=== PATIENT | female | born 1995 | race Caucasian/White ===

== ENCOUNTER 2016-09-16 05:30 | Inpatient (IN) | payer MEDICAID ==
[~2016-09-16] VITALS: Ht 177.8 cm; Wt 84.5 kg
[2016-09-16 05:52] LABS: GLUCOSE,POINT OF CARE 114 MG/DL (70-110)
[2016-09-16] MEDS ORDERED: NOREPINEPHRINE 4 MG/D5%-WATER 250 ML IV PRN (06:00)
[2016-09-16] MEDS ORDERED: SODIUM CHLORIDE 0.9% 1,000 ML IV ONE ×4 (06:00→11:00)
[2016-09-16 06:01] LABS: HEMATOCRIT 35.4 % (36-46); HEMOGLOBIN 11.6 g/dL (12.0-16.0); MEAN CORPUSCULAR HEMOGLOBIN 31.1 pg (26.0-34.0); MEAN CORPUSCULAR HGB CONC 32.8 G/dL (31.0-37.0); MEAN CORPUSCULAR VOLUME 95 fL (80-100); PLATELET COUNT (AUTO) 273 K/uL (150-450); RED BLOOD CELL COUNT(AUTO) 3.73 MIL/uL (4.00-5.20); RED CELL DISTRIBUTION WIDTH 13.5 % (11.5-14.5); WHITE BLOOD COUNT (AUTO) 29.4 K/uL (4.5-11.0)
[2016-09-16 06:10] LABS: ANION GAP 21 mmol/L (8-16); CALCIUM, TOTAL 8.4 mg/dL (8.8-10.5); CARBON DIOXIDE 23 mmol/L (22-29); CHLORIDE 108 mmol/L (98-107); CREATININE 1.95 mg/dL (0.60-1.30); GLOMERULAR FILTR. RATE CALC 32 mL/min (>60); POTASSIUM 3.7 mmol/L (3.5-5.1); SODIUM SERUM 152 mmol/L (136-145); UREA NITROGEN, BLOOD 12 mg/dL (7-18)
[2016-09-16] MEDS ORDERED: PHENYLEPHRINE 200 MG/D5%-WATER 250 ML IV PRN (06:30)
[2016-09-16] MEDS ORDERED: PHENYLEPHRINE 200 MG/D5%-WATER 250 ML IV ONE (06:35)
[2016-09-16] MEDS ORDERED: SODIUM CHLORIDE 0.9% 50 ML ONE (06:36)
[2016-09-16 06:40] LABS: ALANINE AMINOTRANSFERASE 45 U/L (12-78); ALBUMIN 2.7 g/dL (3.4-5.0); ASPARTATE AMINOTRANSFERASE 50 U/L (15-37); BILIRUBIN,TOTAL 0.2 mg/dL (0.1-1.0); CREATINE KINASE MB 0.5 ng/mL (0-5); CREATINE KINASE, TOTAL 111 U/L (26-192); TOTAL PROTEIN, SERUM 5.7 g/dL (6.4-8.2)
[2016-09-16 06:49] LABS: BAND NEUTROPHILS % (MANUAL) 5 % (1-5); LYMPHOCYTES % (MANUAL) 41 % (22-44); TOTAL CELLS COUNTED 100
[2016-09-16 07:12] LABS: APPEARANCE,URINE CLOUDY (CLEAR); GLUCOSE, URINE (UA) 100 mg/dL (NEGATIVE); KETONES,URINE NEGATIVE (NEGATIVE); LEUKOCYTE ESTERASE ,URINE MODERATE (NEGATIVE); OCCULT BLOOD,URINE LARGE (NEGATIVE); PROTEIN,URINE POS 1+ (NEGATIVE)
[2016-09-16 07:13] LABS: ACETAMINOPHEN 4 mcg/mL (10-30)
[2016-09-16] MEDS ORDERED: AZITHROMYCIN 500 MG/NS 250 ML IV ONE (07:15)
[2016-09-16] MEDS ORDERED: PIPERACILLIN/TAZO 3.375 GM/D5W 50 ML IV ONE (07:15)
[2016-09-16] MEDS ORDERED: CLINDAMYCIN 600 MG/D5% WATER 50 ML IV ONE (07:15)
[2016-09-16 07:22] LABS: ADD UA MICROSCOPIC YES
[2016-09-16 07:44] LABS: LACTIC ACID 9.2 mmol/L (0.4-2.0)
[2016-09-16] MEDS ORDERED: MIDAZOLAM HCL 100 MG in DEXTROSE 5%-WATER 180 ML IV PRN (07:45)
[2016-09-16 07:51] LABS: B-TYPE NATRIURETIC PEPTIDE 12 pg/mL (0-100)
[2016-09-16 08:00] LABS: SALICYLATE < 2.8 mg/dL (2.8-20.0)
[2016-09-16 08:52] LABS: REFLEX LACTIC ACID? YES YES
[2016-09-16 09:02] LABS: ABG A-A DIFF O2 343.6 mmHg (10-20.0); ABG BASE EXCESS -13.1 mmol/L (-2.0-3.0); ABG PCO2 39 mmHg (35-45); ABG PH 7.203 (7.350-7.450); TEMPERATURE, FAHRENHEIT, BG 98.6 FAHREN (96.0-98.6)
[2016-09-16 09:03] LABS: ALLEN TEST, BLOOD GAS POS
[2016-09-16] MEDS ORDERED: SODIUM BICARBONATE [ADULT] 8.4% 50 MEQ/50 ML SYRINGE IVP ONE (09:15)
[2016-09-16] MEDS ORDERED: DEXAMETHASONE SOD PHOS 4 MG/ML 5 ML VIAL IVP ONE (09:30)
[2016-09-16] MEDS ORDERED: HALOPERIDOL LACTATE 5 MG/ML VIAL IVP PRN (10:45)
[2016-09-16] MEDS ORDERED: MAGNESIUM HYDROXIDE SUSPENSION 30 ML UDCUP PO PRN (11:00)
[2016-09-16] MEDS ORDERED: MORPHINE SULFATE 2 MG/ML SYRINGE IVP PRN (11:00)
[2016-09-16] MEDS ORDERED: HYDROCODONE/ACETAMINOPHEN 5-325 MG TABLET PO PRN (11:00)
[2016-09-16] MEDS ORDERED: ACETAMINOPHEN 325 MG TABLET PO PRN (11:00)
[2016-09-16] MEDS ORDERED: ZOLPIDEM TARTRATE 5 MG TABLET PO PRN (11:00)
[2016-09-16] MEDS ORDERED: BISACODYL 10 MG RECTAL RECTAL SUPPOSITORY PR PRN (11:00)
[2016-09-16] MEDS ORDERED: ONDANSETRON HCL 4 MG/2 ML VIAL IVP PRN (11:00)
[2016-09-16 11:17] LABS: CALCIUM, TOTAL 6.9 mg/dL (8.8-10.5); CREATININE 1.56 mg/dL (0.60-1.30); POTASSIUM 3.7 mmol/L (3.5-5.1)
[2016-09-16] MEDS ORDERED: EPINEPHrine 1:1,000 [1 MG/ML] AMP IM ONE (12:00)
[2016-09-16 13:47] LABS: GLUCOSE,POINT OF CARE 121 MG/DL (70-110)
[2016-09-16 13:50] LABS: INR 1.3 (0.9-1.1); PROTHROMBIN TIME 13.3 SEC (9.4-11.6)
[2016-09-16] MEDS ORDERED: DEXTROSE 5%-0.9% SODIUM CHL 1,000 ML IV ONE (14:15)
[2016-09-16] MEDS: NOREPINEPHRINE 4 MG/D5%-WATER 250 ML IV PRN ×2 (14:43→22:43)
[2016-09-16] MEDS: HEPARIN SODIUM,PORCINE 5,000 UNITS/ML VIAL SQ SCH (16:31)
[2016-09-16] MEDS: PIPERACILLIN SODIUM/TAZOBACTAM 2.25 GM in DEXTROSE 5%-WATER 50 ML IV SCH (16:31)
[2016-09-16] MEDS: CLINDAMYCIN 300 MG/D5% WATER 50 ML IV SCH (17:10)
[2016-09-16] MEDS ORDERED: DOPamine HCL 400 MG/D5%-WATER 250 ML IV ONE (17:21)
[2016-09-16] MEDS ORDERED: DOPamine HCL 400 MG/D5%-WATER 250 ML IV PRN ×2 (17:30→17:36)
[2016-09-16 20:30] VITALS: BP 124/83
[2016-09-16] MEDS: DOCUSATE SODIUM 100 MG CAPSULE PO SCH (21:00)
[2016-09-17] VITALS: BP 119/91
[2016-09-17] MEDS: CLINDAMYCIN 300 MG/D5% WATER 50 ML IV SCH ×4 (01:23→23:52)
[2016-09-17] MEDS: HEPARIN SODIUM,PORCINE 5,000 UNITS/ML VIAL SQ SCH ×3 (01:25→16:04)
[2016-09-17] MEDS: PIPERACILLIN SODIUM/TAZOBACTAM 2.25 GM in DEXTROSE 5%-WATER 50 ML IV SCH ×4 (01:25→23:52)
[2016-09-17] MEDS: VASOPRESSIN 100 UNITS in DEXTROSE 5%-WATER 245 ML IV PRN ×2 (01:33→13:13)
[2016-09-17] MEDS: NOREPINEPHRINE 4 MG/D5%-WATER 250 ML IV PRN ×6 (01:36→21:06)
[2016-09-17] MEDS: PHENYLEPHRINE 200 MG/D5%-WATER 250 ML IV PRN ×2 (03:07→13:13)
[2016-09-17 04:00] VITALS: BP 105/79
[2016-09-17 05:50] LABS: BILIRUBIN,TOTAL 0.3 mg/dL (0.1-1.0); CALCIUM, TOTAL 6.7 mg/dL (8.8-10.5); CREATININE 2.05 mg/dL (0.60-1.30); MAGNESIUM 1.9 mg/dL (1.80-2.40); PHOSPHORUS 5.4 mg/dL (2.5-4.9); POTASSIUM 4.8 mmol/L (3.5-5.1); TOTAL PROTEIN, SERUM 6.4 g/dL (6.4-8.2)
[2016-09-17 06:19] LABS: EOSINOPHILS % (AUTO) 0 % (1.0-6.0); HEMATOCRIT 47.8 % (36-46); HEMOGLOBIN 15.2 g/dL (12.0-16.0); LYMPHOCYTES # (AUTO) 1.2 K/uL (1.0-4.8); LYMPHOCYTES % (AUTO) 4.3 % (22.0-44.0); MEAN CORPUSCULAR HEMOGLOBIN 30.1 pg (26.0-34.0); MEAN CORPUSCULAR HGB CONC 31.7 G/dL (31.0-37.0); MEAN CORPUSCULAR VOLUME 95 fL (80-100); MONOCYTES # (AUTO) 0.8 K/uL (0.1-1.0); MONOCYTES % (AUTO) 2.7 % (2.0-9.0); NEUTROPHILS # (AUTO) 27.1 K/uL (1.8-7.7); PLATELET COUNT (AUTO) 223 K/uL (150-450); RED BLOOD CELL COUNT(AUTO) 5.03 MIL/uL (4.00-5.20); RED CELL DISTRIBUTION WIDTH 13.9 % (11.5-14.5); WHITE BLOOD COUNT (AUTO) 29.2 K/uL (4.5-11.0)
[2016-09-17 07:45] LABS: RBC MORPHOLOGY COMMENT NORMAL RBC MORPH
[2016-09-17 08:00] VITALS: BP 120/100
[2016-09-17 08:26] LABS: ABG A-A DIFF O2 337.9 mmHg (10-20.0); ABG BASE EXCESS -12.6 mmol/L (-2.0-3.0); ABG HCO3 15.5 mmol/L (22.0-26.0); ABG OXYHEMOGLOBIN 98.4 % (94.0-100.0); ABG PCO2 37 mmHg (35-45); TEMPERATURE, FAHRENHEIT, BG 98.6 FAHREN (96.0-98.6)
[2016-09-17 08:38] LABS: ABG PH 7.228 (7.350-7.450)
[2016-09-17] MEDS: DOCUSATE SODIUM 100 MG CAPSULE PO SCH ×2 (08:51→21:00)
[2016-09-17] MEDS: PANTOPRAZOLE SODIUM 40 MG DR TABLET PO SCH (08:51)
[2016-09-17 12:00] VITALS: BP 139/121
[2016-09-17 16:00] VITALS: BP 117/79
[2016-09-17] MEDS ORDERED: SODIUM BICARBONATE [ADULT] 8.4% 50 MEQ/50 ML SYRINGE IVP ONE ×3 (16:45→21:30)
[2016-09-17] MEDS ORDERED: SODIUM BICARBONATE 50 MEQ/50 ML VIAL IVP ONE (17:00)
[2016-09-17] MEDS ORDERED: SODIUM CHLORIDE 0.9% 1,000 ML IV ONE (17:00)
[2016-09-17] MEDS ORDERED: LEVOTHYROXINE SODIUM 100 MCG VIAL IV ONE (17:00)
[2016-09-17] MEDS ORDERED: LEVOTHYROXINE SODIUM 100 MCG VIAL IVP ONE (17:15)
[2016-09-17 17:47] LABS: BASOPHILS % (AUTO) 0.3 % (0.0-2.0); EOSINOPHILS % (AUTO) 0 % (1.0-6.0); HEMATOCRIT 44.8 % (36-46); HEMOGLOBIN 14.3 g/dL (12.0-16.0); LYMPHOCYTES # (AUTO) 1.5 K/uL (1.0-4.8); LYMPHOCYTES % (AUTO) 5.4 % (22.0-44.0); MEAN CORPUSCULAR HEMOGLOBIN 29.9 pg (26.0-34.0); MEAN CORPUSCULAR VOLUME 94 fL (80-100); MONOCYTES # (AUTO) 0.9 K/uL (0.1-1.0); MONOCYTES % (AUTO) 3.1 % (2.0-9.0); NEUTROPHILS # (AUTO) 25.6 K/uL (1.8-7.7); PLATELET COUNT (AUTO) 202 K/uL (150-450); RED BLOOD CELL COUNT(AUTO) 4.79 MIL/uL (4.00-5.20); RED CELL DISTRIBUTION WIDTH 13.5 % (11.5-14.5); WHITE BLOOD COUNT (AUTO) 28.1 K/uL (4.5-11.0)
[2016-09-17 17:48] LABS: CALCIUM, TOTAL 6.9 mg/dL (8.8-10.5); CREATININE 1.32 mg/dL (0.60-1.30); POTASSIUM 5.3 mmol/L (3.5-5.1)
[2016-09-17 17:51] LABS: NEUTROPHILS % (AUTO) 91.2 % (40.0-70.0)
[2016-09-17 17:55] LABS: INR 1.3 (0.9-1.1); PROTHROMBIN TIME 14.2 SEC (9.4-11.6)
[2016-09-17] MEDS ORDERED: INSULIN REGULAR, HUMAN 100 UNITS/ML IVP ONE (18:00)
[2016-09-17] MEDS ORDERED: METOPROLOL TARTRATE 5 MG/5 ML VIAL IVP PRN (18:00)
[2016-09-17] MEDS ORDERED: DEXTROSE 50%-WATER 25 GM/50 ML SYRINGE IVP ONE (18:00)
[2016-09-17 18:07] LABS: ALBUMIN 2.9 g/dL (3.4-5.0); BILIRUBIN,TOTAL 0.3 mg/dL (0.1-1.0); TOTAL PROTEIN, SERUM 6.1 g/dL (6.4-8.2)
[2016-09-17] MEDS ORDERED: VASOPRESSIN IV PRN (18:15)
[2016-09-17] MEDS ORDERED: DEXTROSE 5% IV PRN (18:15)
[2016-09-17] MEDS ORDERED: VECURONIUM BROMIDE 10 MG/VIAL IVP ONE (18:15)
[2016-09-17] MEDS ORDERED: WATER IV PRN (18:15)
[2016-09-17] MEDS ORDERED: HydrALAZINE HCL 20 MG/ML VIAL IVP PRN (18:15)
[2016-09-17] MEDS ORDERED: NALOXONE HCL 1 MG/ML 2 ML SYG IVP ONE (18:15)
[2016-09-17] MEDS: LEVOTHYROXINE SODIUM 200 MCG in SODIUM CHLORIDE 0.9% 500 ML IV SCH (18:36)
[2016-09-17] MEDS: VANCOMYCIN HCL 1 GM/D5% WATER 200 ML IV SCH (18:37)
[2016-09-17] MEDS ORDERED: SODIUM CHLORIDE 0.9% 250 ML IV ONE (18:42)
[2016-09-17] MEDS: SODIUM CHLORIDE 0.9% 1,000 ML IV SCH (18:48)
[2016-09-17 19:53] LABS: ABG A-A DIFF O2 426.7 mmHg (10-20.0); ABG BASE EXCESS -6.9 mmol/L (-2.0-3.0); ABG HCO3 18.4 mmol/L (22.0-26.0); ABG OXYHEMOGLOBIN 93.4 % (94.0-100.0); ABG PCO2 56 mmHg (35-45); TEMPERATURE, FAHRENHEIT, BG 99.8 FAHREN (96.0-98.6)
[2016-09-17 19:54] LABS: ALLEN TEST, BLOOD GAS Positive
[2016-09-17 20:00] VITALS: BP 124/87
[2016-09-17 20:09] LABS: ABG PH 7.196 (7.350-7.450)
[2016-09-17] MEDS ORDERED: MAGNESIUM SULFATE 2 GM in DEXTROSE 5%-WATER 50 ML IV PRN (20:15)
[2016-09-17] MEDS ORDERED: MAGNESIUM SULFATE 4 GM/WATER 100 ML IV PRN (20:15)
[2016-09-17] MEDS ORDERED: POTASSIUM CHL 10 MEQ/WATER 50 ML IV PRN (20:15)
[2016-09-17] MEDS: CHLORHEXIDINE GLUCONATE 0.12% 15 ML UDCUP ORAL RINSE PO SCH (21:05)
[2016-09-17 21:11] LABS: ABG A-A DIFF O2 420.3 mmHg (10-20.0); ABG BASE EXCESS -6.5 mmol/L (-2.0-3.0); ABG HCO3 18.7 mmol/L (22.0-26.0); ABG OXYHEMOGLOBIN 94.8 % (94.0-100.0); ABG PCO2 56 mmHg (35-45); TEMPERATURE, FAHRENHEIT, BG 98.7 FAHREN (96.0-98.6)
[2016-09-17 21:12] LABS: ABG PH 7.201 (7.350-7.450); ALLEN TEST, BLOOD GAS Positive
[2016-09-17 21:34] LABS: HEMATOCRIT 45.8 % (36-46); HEMOGLOBIN 14.5 g/dL (12.0-16.0); MEAN CORPUSCULAR HEMOGLOBIN 29.7 pg (26.0-34.0); MEAN CORPUSCULAR HGB CONC 31.6 G/dL (31.0-37.0); MEAN CORPUSCULAR VOLUME 94 fL (80-100); PLATELET COUNT (AUTO) 181 K/uL (150-450); RED BLOOD CELL COUNT(AUTO) 4.88 MIL/uL (4.00-5.20)
[2016-09-17 21:47] LABS: INR 1.4 (0.9-1.1); PROTHROMBIN TIME 14.6 SEC (9.4-11.6)
[2016-09-17 22:03] LABS: ANION GAP 10 mmol/L (8-16); CALCIUM, TOTAL 6.5 mg/dL (8.8-10.5); CARBON DIOXIDE 27 mmol/L (22-29); CHLORIDE 106 mmol/L (98-107); CREATININE 1.22 mg/dL (0.60-1.30); GLOMERULAR FILTR. RATE CALC 55 mL/min (>60); POTASSIUM 3.9 mmol/L (3.5-5.1); SODIUM SERUM 143 mmol/L (136-145); UREA NITROGEN, BLOOD 19 mg/dL (7-18)
[2016-09-17 22:10] LABS: BAND NEUTROPHILS % (MANUAL) 7 % (1-5); LYMPHOCYTES % (MANUAL) 3 % (22-44); TOTAL CELLS COUNTED 100
[2016-09-17 22:34] LABS: ALANINE AMINOTRANSFERASE 3354 U/L (12-78); ALBUMIN 2.6 g/dL (3.4-5.0); AMYLASE 54 U/L (25-115); BILIRUBIN,TOTAL 0.4 mg/dL (0.1-1.0); CREATINE KINASE MB 174.5 ng/mL (0-5); GAMMA GLUTAMYL TRANSFERASE 22 U/L (5-85); LACTATE DEHYDROGENASE 2189 U/L (81-234); PHOSPHORUS 4.6 mg/dL (2.5-4.9); TOTAL PROTEIN, SERUM 5.7 g/dL (6.4-8.2)
[2016-09-17 22:46] LABS: LACTIC ACID 4.5 mmol/L (0.4-2.0)
[2016-09-17 22:49] LABS: ASPARTATE AMINOTRANSFERASE 3903 U/L (15-37); CREATINE KINASE, TOTAL 5257 U/L (26-192)
[2016-09-17 23:08] LABS: APPEARANCE,URINE TURBID (CLEAR); GLUCOSE, URINE (UA) 100 mg/dL (NEGATIVE); KETONES,URINE NEGATIVE (NEGATIVE); LEUKOCYTE ESTERASE ,URINE SMALL (NEGATIVE); OCCULT BLOOD,URINE LARGE (NEGATIVE); PROTEIN,URINE SEE CONFIRM (NEGATIVE)
[2016-09-17 23:11] LABS: ADD UA MICROSCOPIC YES
[2016-09-17 23:23] LABS: SULFOSALICYLIC ACID,URINE 1+ (Negative)
[2016-09-17 23:24] LABS: SQUAMOUS EPITHELIAL CELL,UR Moderate /LPF (None Seen)
[2016-09-17 23:28] LABS: REFLEX LACTIC ACID? YES YES
[2016-09-18] VITALS: BP 132/96
[2016-09-18 01:19] LABS: ABG A-A DIFF O2 303.2 mmHg (10-20.0); ABG HCO3 22.4 mmol/L (22.0-26.0); ABG OXYHEMOGLOBIN 98.3 % (94.0-100.0); ABG PCO2 52 mmHg (35-45); TEMPERATURE, FAHRENHEIT, BG 98.7 FAHREN (96.0-98.6)
[2016-09-18 01:20] LABS: ABG PH 7.295 (7.350-7.450); ALLEN TEST, BLOOD GAS Positive
[2016-09-18 01:29] LABS: ANION GAP 8 mmol/L (8-16); CALCIUM, TOTAL 6.7 mg/dL (8.8-10.5); CARBON DIOXIDE 29 mmol/L (22-29); CHLORIDE 105 mmol/L (98-107); CREATININE 1.08 mg/dL (0.60-1.30); GLOMERULAR FILTR. RATE CALC > 60 mL/min (>60); POTASSIUM 4.2 mmol/L (3.5-5.1); SODIUM SERUM 142 mmol/L (136-145); UREA NITROGEN, BLOOD 18 mg/dL (7-18)
[2016-09-18] MEDS: ALBUTEROL SULFATE 2.5 MG/0.5 ML NEB SOLUTION NEB SCH ×11 (01:31→23:09)
[2016-09-18] MEDS: IPRATROPIUM BROMIDE 0.5 MG/2.5 ML NEB SOLUTION NEB SCH ×11 (01:31→23:09)
[2016-09-18 01:33] LABS: HEMATOCRIT 41.7 % (36-46); HEMOGLOBIN 13.8 g/dL (12.0-16.0); MEAN CORPUSCULAR HEMOGLOBIN 30.9 pg (26.0-34.0); MEAN CORPUSCULAR VOLUME 94 fL (80-100); PLATELET COUNT (AUTO) 184 K/uL (150-450); RED BLOOD CELL COUNT(AUTO) 4.45 MIL/uL (4.00-5.20); RED CELL DISTRIBUTION WIDTH 13.9 % (11.5-14.5); WHITE BLOOD COUNT (AUTO) 25.3 K/uL (4.5-11.0)
[2016-09-18 01:38] LABS: INR 1.3 (0.9-1.1); PROTHROMBIN TIME 14.1 SEC (9.4-11.6)
[2016-09-18 01:59] LABS: LACTIC ACID 4.8 mmol/L (0.4-2.0)
[2016-09-18 02:04] LABS: ALANINE AMINOTRANSFERASE 2990 U/L (12-78); ALBUMIN 2.6 g/dL (3.4-5.0); AMYLASE 53 U/L (25-115); BILIRUBIN,TOTAL 0.4 mg/dL (0.1-1.0); CREATINE KINASE MB 157.5 ng/mL (0-5); CREATINE KINASE, TOTAL 5026 U/L (26-192); PHOSPHORUS 3.6 mg/dL (2.5-4.9); TOTAL PROTEIN, SERUM 5.5 g/dL (6.4-8.2)
[2016-09-18] MEDS: PHENYLEPHRINE 200 MG/D5%-WATER 250 ML IV PRN (02:28)
[2016-09-18] MEDS ORDERED: SODIUM BICARBONATE [ADULT] 8.4% 50 MEQ/50 ML SYRINGE IVP ONE (02:30)
[2016-09-18 02:35] LABS: ASPARTATE AMINOTRANSFERASE 3060 U/L (15-37)
[2016-09-18 02:51] LABS: TOTAL CELLS COUNTED 100
[2016-09-18 02:52] LABS: BAND NEUTROPHILS % (MANUAL) 3 % (1-5); LYMPHOCYTES % (MANUAL) 3 % (22-44)
[2016-09-18 04:00] VITALS: BP 110/68
[2016-09-18] MEDS: SODIUM CHLORIDE 0.9% 1,000 ML IV SCH (04:12)
[2016-09-18 05:35] LABS: ABG A-A DIFF O2 258.1 mmHg (10-20.0); ABG BASE EXCESS 2.6 mmol/L (-2.0-3.0); ABG HCO3 26.4 mmol/L (22.0-26.0); ABG OXYHEMOGLOBIN 98.1 % (94.0-100.0); ABG PCO2 46 mmHg (35-45); ABG PH 7.392 (7.350-7.450); TEMPERATURE, FAHRENHEIT, BG 99.7 FAHREN (96.0-98.6)
[2016-09-18 05:36] LABS: ALLEN TEST, BLOOD GAS Positive
[2016-09-18 05:45] LABS: HEMATOCRIT 41.3 % (36-46); HEMOGLOBIN 13.5 g/dL (12.0-16.0); MEAN CORPUSCULAR HEMOGLOBIN 30.8 pg (26.0-34.0); MEAN CORPUSCULAR HGB CONC 32.6 G/dL (31.0-37.0); MEAN CORPUSCULAR VOLUME 94 fL (80-100); PLATELET COUNT (AUTO) 171 K/uL (150-450); RED BLOOD CELL COUNT(AUTO) 4.38 MIL/uL (4.00-5.20); RED CELL DISTRIBUTION WIDTH 13.4 % (11.5-14.5); WHITE BLOOD COUNT (AUTO) 23.2 K/uL (4.5-11.0)
[2016-09-18 05:50] LABS: ANION GAP 8 mmol/L (8-16); CALCIUM, TOTAL 7.2 mg/dL (8.8-10.5); CARBON DIOXIDE 31 mmol/L (22-29); CHLORIDE 108 mmol/L (98-107); CREATININE 1.01 mg/dL (0.60-1.30); GLOMERULAR FILTR. RATE CALC > 60 mL/min (>60); SODIUM SERUM 147 mmol/L (136-145); UREA NITROGEN, BLOOD 16 mg/dL (7-18)
[2016-09-18 05:51] LABS: INR 1.2 (0.9-1.1); PROTHROMBIN TIME 12.6 SEC (9.4-11.6)
[2016-09-18] MEDS ORDERED: FUROSEMIDE 20 MG/2 ML VIAL IVP ONE ×2 (06:00→13:00)
[2016-09-18] MEDS: LEVOTHYROXINE SODIUM 200 MCG in SODIUM CHLORIDE 0.9% 500 ML IV SCH ×2 (06:07→17:35)
[2016-09-18 06:11] LABS: LACTIC ACID 4.2 mmol/L (0.4-2.0)
[2016-09-18 06:23] LABS: ALANINE AMINOTRANSFERASE 2952 U/L (12-78); ALBUMIN 2.8 g/dL (3.4-5.0); AMYLASE 57 U/L (25-115); ASPARTATE AMINOTRANSFERASE 1961 U/L (15-37); BILIRUBIN,TOTAL 0.5 mg/dL (0.1-1.0); CREATINE KINASE MB 135.2 ng/mL (0-5); CREATINE KINASE, TOTAL 4893 U/L (26-192); PHOSPHORUS 2.2 mg/dL (2.5-4.9); TOTAL PROTEIN, SERUM 5.4 g/dL (6.4-8.2)
[2016-09-18 06:28] LABS: BAND NEUTROPHILS % (MANUAL) 3 % (1-5); LYMPHOCYTES % (MANUAL) 4 % (22-44); TOTAL CELLS COUNTED 100
[2016-09-18 07:58] LABS: ABG A-A DIFF O2 196.7 mmHg (10-20.0); ABG BASE EXCESS 3.9 mmol/L (-2.0-3.0); ABG HCO3 27.3 mmol/L (22.0-26.0); ABG OXYHEMOGLOBIN 97.5 % (94.0-100.0); ABG PCO2 47 mmHg (35-45); ABG PH 7.404 (7.350-7.450); TEMPERATURE, FAHRENHEIT, BG 98.9 FAHREN (96.0-98.6)
[2016-09-18 07:59] LABS: ALLEN TEST, BLOOD GAS Positive
[2016-09-18 08:00] VITALS: BP 118/68
[2016-09-18] MEDS: PIPERACILLIN SODIUM/TAZOBACTAM 2.25 GM in DEXTROSE 5%-WATER 50 ML IV SCH ×2 (08:23→17:34)
[2016-09-18] MEDS: CLINDAMYCIN 300 MG/D5% WATER 50 ML IV SCH ×2 (08:23→17:34)
[2016-09-18] MEDS: CHLORHEXIDINE GLUCONATE 0.12% 15 ML UDCUP ORAL RINSE PO SCH ×2 (08:23→21:23)
[2016-09-18] MEDS: PANTOPRAZOLE SODIUM 40 MG DR TABLET PO SCH (08:23)
[2016-09-18] MEDS: DOCUSATE SODIUM 100 MG CAPSULE PO SCH ×2 (08:23→21:00)
[2016-09-18 08:32] LABS: EOSINOPHILS % (AUTO) 0 % (1.0-6.0); HEMATOCRIT 40.6 % (36-46); HEMOGLOBIN 13.2 g/dL (12.0-16.0); LYMPHOCYTES # (AUTO) 0.6 K/uL (1.0-4.8); LYMPHOCYTES % (AUTO) 2.4 % (22.0-44.0); MEAN CORPUSCULAR HEMOGLOBIN 30.3 pg (26.0-34.0); MEAN CORPUSCULAR HGB CONC 32.6 G/dL (31.0-37.0); MEAN CORPUSCULAR VOLUME 93 fL (80-100); MONOCYTES # (AUTO) 0.2 K/uL (0.1-1.0); MONOCYTES % (AUTO) 0.8 % (2.0-9.0); NEUTROPHILS # (AUTO) 24.8 K/uL (1.8-7.7); PLATELET COUNT (AUTO) 183 K/uL (150-450); RED BLOOD CELL COUNT(AUTO) 4.38 MIL/uL (4.00-5.20); RED CELL DISTRIBUTION WIDTH 13.8 % (11.5-14.5); WHITE BLOOD COUNT (AUTO) 25.6 K/uL (4.5-11.0)
[2016-09-18 08:34] LABS: NEUTROPHILS % (AUTO) 96.8 % (40.0-70.0)
[2016-09-18 08:42] LABS: ANION GAP 10 mmol/L (8-16); CALCIUM, TOTAL 7.5 mg/dL (8.8-10.5); CARBON DIOXIDE 31 mmol/L (22-29); CHLORIDE 110 mmol/L (98-107); CREATININE 1.11 mg/dL (0.60-1.30); GLOMERULAR FILTR. RATE CALC > 60 mL/min (>60); POTASSIUM 3.9 mmol/L (3.5-5.1); SODIUM SERUM 151 mmol/L (136-145); UREA NITROGEN, BLOOD 15 mg/dL (7-18)
[2016-09-18 08:43] LABS: INR 1.2 (0.9-1.1); PROTHROMBIN TIME 12.3 SEC (9.4-11.6)
[2016-09-18 09:09] LABS: LACTIC ACID 4.6 mmol/L (0.4-2.0)
[2016-09-18 09:18] LABS: ALANINE AMINOTRANSFERASE 2861 U/L (12-78); ALBUMIN 2.9 g/dL (3.4-5.0); AMYLASE 55 U/L (25-115); BILIRUBIN,TOTAL 0.6 mg/dL (0.1-1.0); CREATINE KINASE MB 112.8 ng/mL (0-5); PHOSPHORUS 1.6 mg/dL (2.5-4.9); TOTAL PROTEIN, SERUM 5.9 g/dL (6.4-8.2)
[2016-09-18 09:20] LABS: ASPARTATE AMINOTRANSFERASE 1672 U/L (15-37)
[2016-09-18 09:21] LABS: CREATINE KINASE, TOTAL 4152 U/L (26-192)
[2016-09-18] MEDS ORDERED: SODIUM CHLORIDE 0.9% 500 ML IV ONE (09:34)
[2016-09-18] MEDS ORDERED: POTASSIUM PHOS,M-BASIC-D-BASIC 20 MMOL in DEXTROSE 5%-WATER 150 ML IV ONE (11:15)
[2016-09-18] MEDS: DEXTROSE 5%-WATER 1,000 ML IV SCH ×2 (11:34→17:34)
[2016-09-18 12:00] VITALS: BP 94/49
[2016-09-18 12:11] LABS: ABG A-A DIFF O2 203.1 mmHg (10-20.0); ABG BASE EXCESS 0.9 mmol/L (-2.0-3.0); ABG HCO3 25.4 mmol/L (22.0-26.0); ABG OXYHEMOGLOBIN 97.5 % (94.0-100.0); ABG PCO2 38 mmHg (35-45); ABG PH 7.434 (7.350-7.450); TEMPERATURE, FAHRENHEIT, BG 98.5 FAHREN (96.0-98.6)
[2016-09-18 12:40] LABS: BASOPHILS % (AUTO) 0.3 % (0.0-2.0); EOSINOPHILS % (AUTO) 0 % (1.0-6.0); HEMATOCRIT 35.5 % (36-46); HEMOGLOBIN 11.7 g/dL (12.0-16.0); LYMPHOCYTES # (AUTO) 0.6 K/uL (1.0-4.8); LYMPHOCYTES % (AUTO) 2.1 % (22.0-44.0); MEAN CORPUSCULAR HEMOGLOBIN 30.3 pg (26.0-34.0); MEAN CORPUSCULAR VOLUME 92 fL (80-100); MONOCYTES # (AUTO) 0.3 K/uL (0.1-1.0); MONOCYTES % (AUTO) 1.1 % (2.0-9.0); PLATELET COUNT (AUTO) 179 K/uL (150-450); RED BLOOD CELL COUNT(AUTO) 3.87 MIL/uL (4.00-5.20); RED CELL DISTRIBUTION WIDTH 13.8 % (11.5-14.5)
[2016-09-18 12:45] LABS: ANION GAP 10 mmol/L (8-16); CALCIUM, TOTAL 7.3 mg/dL (8.8-10.5); CARBON DIOXIDE 31 mmol/L (22-29); CHLORIDE 110 mmol/L (98-107); CREATININE 0.88 mg/dL (0.60-1.30); GLOMERULAR FILTR. RATE CALC > 60 mL/min (>60); NEUTROPHILS % (AUTO) 96.5 % (40.0-70.0); POTASSIUM 3.3 mmol/L (3.5-5.1); SODIUM SERUM 151 mmol/L (136-145); UREA NITROGEN, BLOOD 16 mg/dL (7-18)
[2016-09-18 12:47] LABS: INR 1.2 (0.9-1.1); PROTHROMBIN TIME 12.5 SEC (9.4-11.6)
[2016-09-18 13:09] LABS: LACTIC ACID 3.2 mmol/L (0.4-2.0)
[2016-09-18 13:18] LABS: ALANINE AMINOTRANSFERASE 2462 U/L (12-78); ALBUMIN 2.5 g/dL (3.4-5.0); AMYLASE 45 U/L (25-115); BILIRUBIN,TOTAL 0.5 mg/dL (0.1-1.0); CREATINE KINASE MB 77.6 ng/mL (0-5); TOTAL PROTEIN, SERUM 5.1 g/dL (6.4-8.2)
[2016-09-18 13:33] LABS: ASPARTATE AMINOTRANSFERASE 1274 U/L (15-37); CREATINE KINASE, TOTAL 2924 U/L (26-192)
[2016-09-18 13:35] LABS: PHOSPHORUS 1.1 mg/dL (2.5-4.9)
[2016-09-18 14:31] LABS: REFLEX LACTIC ACID? YES YES
[2016-09-18 16:00] VITALS: BP 111/53
[2016-09-18 16:15] LABS: BASOPHILS % (AUTO) 1.2 % (0.0-2.0); EOSINOPHILS % (AUTO) 0 % (1.0-6.0); HEMATOCRIT 35.5 % (36-46); HEMOGLOBIN 11.5 g/dL (12.0-16.0); LYMPHOCYTES # (AUTO) 0.8 K/uL (1.0-4.8); LYMPHOCYTES % (AUTO) 2.7 % (22.0-44.0); MEAN CORPUSCULAR HGB CONC 32.5 G/dL (31.0-37.0); MEAN CORPUSCULAR VOLUME 92 fL (80-100); MONOCYTES # (AUTO) 0.3 K/uL (0.1-1.0); MONOCYTES % (AUTO) 1.1 % (2.0-9.0); NEUTROPHILS # (AUTO) 27.4 K/uL (1.8-7.7); PLATELET COUNT (AUTO) 181 K/uL (150-450); RED BLOOD CELL COUNT(AUTO) 3.84 MIL/uL (4.00-5.20); RED CELL DISTRIBUTION WIDTH 13.6 % (11.5-14.5); WHITE BLOOD COUNT (AUTO) 28.8 K/uL (4.5-11.0)
[2016-09-18 16:26] LABS: ABG A-A DIFF O2 181.3 mmHg (10-20.0); ABG BASE EXCESS 7.2 mmol/L (-2.0-3.0); ABG HCO3 30.5 mmol/L (22.0-26.0); ABG OXYHEMOGLOBIN 98.2 % (94.0-100.0); ABG PCO2 40 mmHg (35-45); ABG PH 7.495 (7.350-7.450); TEMPERATURE, FAHRENHEIT, BG 98.5 FAHREN (96.0-98.6)
[2016-09-18] MEDS ORDERED: LIDOCAINE HCL 4% 50 ML SOLUTION TP ONE (16:42)
[2016-09-18] MEDS ORDERED: EPINEPHrine 1:1,000 [1 MG/ML] AMP IM ONE (16:42)
[2016-09-18] MEDS ORDERED: LIDOCAINE HCL 2% 30 ML JELLY TP ONE (16:42)
[2016-09-18 16:49] LABS: INR 1.2 (0.9-1.1); PROTHROMBIN TIME 12.2 SEC (9.4-11.6)
[2016-09-18 16:58] LABS: ALANINE AMINOTRANSFERASE 2286 U/L (12-78); ALBUMIN 2.6 g/dL (3.4-5.0); AMYLASE 42 U/L (25-115); ANION GAP 7 mmol/L (8-16); BILIRUBIN,TOTAL 0.6 mg/dL (0.1-1.0); CALCIUM, TOTAL 7.5 mg/dL (8.8-10.5); CARBON DIOXIDE 33 mmol/L (22-29); CHLORIDE 108 mmol/L (98-107); CREATINE KINASE MB 56.3 ng/mL (0-5); CREATININE 0.96 mg/dL (0.60-1.30); GLOMERULAR FILTR. RATE CALC > 60 mL/min (>60); SODIUM SERUM 148 mmol/L (136-145); TOTAL PROTEIN, SERUM 5.3 g/dL (6.4-8.2); UREA NITROGEN, BLOOD 14 mg/dL (7-18)
[2016-09-18 17:07] LABS: LACTIC ACID 2.8 mmol/L (0.4-2.0)
[2016-09-18 17:19] LABS: ASPARTATE AMINOTRANSFERASE 1106 U/L (15-37); CREATINE KINASE, TOTAL 2775 U/L (26-192); PHOSPHORUS 1.1 mg/dL (2.5-4.9)
[2016-09-18] MEDS ORDERED: POTASSIUM PHOS,M-BASIC-D-BASIC 30 MMOL in DEXTROSE 5%-WATER 250 ML IV ONE ×2 (17:30→22:00)
[2016-09-18] MEDS ORDERED: SODIUM CHLORIDE 0.9% 250 ML IV ONE (17:32)
[2016-09-18] MEDS: POTASSIUM CHL 10 MEQ/WATER 50 ML IV PRN (18:39)
[2016-09-18] MEDS: VANCOMYCIN HCL 1 GM/D5% WATER 200 ML IV SCH (18:41)
[2016-09-18 19:20] LABS: ABG A-A DIFF O2 138.1 mmHg (10-20.0); ABG BASE EXCESS 5.5 mmol/L (-2.0-3.0); ABG OXYHEMOGLOBIN 97.5 % (94.0-100.0); ABG PCO2 42 mmHg (35-45); ABG PH 7.461 (7.350-7.450); TEMPERATURE, FAHRENHEIT, BG 98.6 FAHREN (96.0-98.6)
[2016-09-18 19:21] LABS: ALLEN TEST, BLOOD GAS Positive
[2016-09-18 20:35] LABS: BASOPHILS % (AUTO) 0.3 % (0.0-2.0); EOSINOPHILS % (AUTO) 0 % (1.0-6.0); HEMATOCRIT 32.7 % (36-46); HEMOGLOBIN 10.6 g/dL (12.0-16.0); LYMPHOCYTES # (AUTO) 0.6 K/uL (1.0-4.8); LYMPHOCYTES % (AUTO) 2.3 % (22.0-44.0); MEAN CORPUSCULAR HEMOGLOBIN 29.7 pg (26.0-34.0); MEAN CORPUSCULAR HGB CONC 32.5 G/dL (31.0-37.0); MEAN CORPUSCULAR VOLUME 91 fL (80-100); MONOCYTES # (AUTO) 0.3 K/uL (0.1-1.0); MONOCYTES % (AUTO) 1.3 % (2.0-9.0); NEUTROPHILS # (AUTO) 26.2 K/uL (1.8-7.7); PLATELET COUNT (AUTO) 174 K/uL (150-450); RED BLOOD CELL COUNT(AUTO) 3.58 MIL/uL (4.00-5.20); RED CELL DISTRIBUTION WIDTH 13.7 % (11.5-14.5); WHITE BLOOD COUNT (AUTO) 27.2 K/uL (4.5-11.0)
[2016-09-18 20:38] LABS: NEUTROPHILS % (AUTO) 96.1 % (40.0-70.0)
[2016-09-18 20:43] LABS: INR 1.2 (0.9-1.1); PROTHROMBIN TIME 12.3 SEC (9.4-11.6)
[2016-09-18 21:01] LABS: ALANINE AMINOTRANSFERASE 2090 U/L (12-78); ALBUMIN 2.5 g/dL (3.4-5.0); AMYLASE 36 U/L (25-115); ANION GAP 9 mmol/L (8-16); ASPARTATE AMINOTRANSFERASE 872 U/L (15-37); BILIRUBIN,TOTAL 0.6 mg/dL (0.1-1.0); CALCIUM, TOTAL 7.3 mg/dL (8.8-10.5); CARBON DIOXIDE 31 mmol/L (22-29); CHLORIDE 106 mmol/L (98-107); CREATINE KINASE MB 33.5 ng/mL (0-5); CREATINE KINASE, TOTAL 2087 U/L (26-192); CREATININE 1.03 mg/dL (0.60-1.30); GLOMERULAR FILTR. RATE CALC > 60 mL/min (>60); PHOSPHORUS 1.8 mg/dL (2.5-4.9); POTASSIUM 3.2 mmol/L (3.5-5.1); SODIUM SERUM 146 mmol/L (136-145); UREA NITROGEN, BLOOD 15 mg/dL (7-18)
[2016-09-18 21:16] LABS: LACTIC ACID 3.1 mmol/L (0.4-2.0)
[2016-09-18 21:26] VITALS: BP 115/56
[2016-09-18 23:22] LABS: ABG A-A DIFF O2 129.8 mmHg (10-20.0); ABG BASE EXCESS 6.6 mmol/L (-2.0-3.0); ABG OXYHEMOGLOBIN 97.8 % (94.0-100.0); ABG PCO2 42 mmHg (35-45); ABG PH 7.477 (7.350-7.450); TEMPERATURE, FAHRENHEIT, BG 98.3 FAHREN (96.0-98.6)
[2016-09-18 23:23] LABS: ALLEN TEST, BLOOD GAS Positive
[2016-09-19] MEDS ORDERED: ALBUMIN HUMAN 5%-12.5GM/250ML 250 ML IV ONE
[2016-09-19 00:19] VITALS: BP 117/57
[2016-09-19 00:36] LABS: HEMATOCRIT 31.4 % (36-46); HEMOGLOBIN 10.2 g/dL (12.0-16.0); MEAN CORPUSCULAR VOLUME 92 fL (80-100); RED BLOOD CELL COUNT(AUTO) 3.42 MIL/uL (4.00-5.20); WHITE BLOOD COUNT (AUTO) 29.9 K/uL (4.5-11.0)
[2016-09-19 00:37] LABS: BASOPHILS % (AUTO) 0.1 % (0.0-2.0); EOSINOPHILS % (AUTO) 0 % (1.0-6.0); LYMPHOCYTES # (AUTO) 0.7 K/uL (1.0-4.8); LYMPHOCYTES % (AUTO) 2.5 % (22.0-44.0); MEAN CORPUSCULAR HEMOGLOBIN 29.7 pg (26.0-34.0); MEAN CORPUSCULAR HGB CONC 32.5 G/dL (31.0-37.0); MONOCYTES # (AUTO) 0.4 K/uL (0.1-1.0); MONOCYTES % (AUTO) 1.2 % (2.0-9.0); NEUTROPHILS # (AUTO) 28.8 K/uL (1.8-7.7); PLATELET COUNT (AUTO) 171 K/uL (150-450); RED CELL DISTRIBUTION WIDTH 13.8 % (11.5-14.5)
[2016-09-19] MEDS: PIPERACILLIN SODIUM/TAZOBACTAM 2.25 GM in DEXTROSE 5%-WATER 50 ML IV SCH ×3 (00:39→16:09)
[2016-09-19 00:47] LABS: NEUTROPHILS % (AUTO) 96.2 % (40.0-70.0)
[2016-09-19] MEDS: LEVOTHYROXINE SODIUM 200 MCG in SODIUM CHLORIDE 0.9% 500 ML IV SCH ×3 (00:47→19:57)
[2016-09-19] MEDS: CLINDAMYCIN 300 MG/D5% WATER 50 ML IV SCH ×3 (00:48→16:08)
[2016-09-19 00:55] LABS: INR 1.1 (0.9-1.1)
[2016-09-19] MEDS: ALBUTEROL SULFATE 2.5 MG/0.5 ML NEB SOLUTION NEB SCH ×11 (00:59→23:41)
[2016-09-19] MEDS: IPRATROPIUM BROMIDE 0.5 MG/2.5 ML NEB SOLUTION NEB SCH ×11 (00:59→23:41)
[2016-09-19 01:09] LABS: LACTIC ACID 2.8 mmol/L (0.4-2.0)
[2016-09-19 01:20] LABS: ALANINE AMINOTRANSFERASE 2074 U/L (12-78); ALBUMIN 2.4 g/dL (3.4-5.0); AMYLASE 33 U/L (25-115); ANION GAP 7 mmol/L (8-16); ASPARTATE AMINOTRANSFERASE 779 U/L (15-37); BILIRUBIN,TOTAL 0.6 mg/dL (0.1-1.0); CALCIUM, TOTAL 7.5 mg/dL (8.8-10.5); CARBON DIOXIDE 32 mmol/L (22-29); CHLORIDE 106 mmol/L (98-107); CREATINE KINASE MB 27.6 ng/mL (0-5); CREATININE 0.87 mg/dL (0.60-1.30); GLOMERULAR FILTR. RATE CALC > 60 mL/min (>60); PHOSPHORUS 1.9 mg/dL (2.5-4.9); SODIUM SERUM 145 mmol/L (136-145); TOTAL PROTEIN, SERUM 5.1 g/dL (6.4-8.2); UREA NITROGEN, BLOOD 13 mg/dL (7-18)
[2016-09-19 01:29] LABS: CREATINE KINASE, TOTAL 1733 U/L (26-192); POTASSIUM 2.9 mmol/L (3.5-5.1)
[2016-09-19] MEDS: POTASSIUM CHL 10 MEQ/WATER 50 ML IV SCH ×5 (01:52→11:00)
[2016-09-19 03:22] LABS: ABG A-A DIFF O2 140.1 mmHg (10-20.0); ABG BASE EXCESS 5.7 mmol/L (-2.0-3.0); ABG HCO3 29.3 mmol/L (22.0-26.0); ABG OXYHEMOGLOBIN 97.3 % (94.0-100.0); ABG PCO2 39 mmHg (35-45); TEMPERATURE, FAHRENHEIT, BG 98.4 FAHREN (96.0-98.6)
[2016-09-19 03:25] LABS: ALLEN TEST, BLOOD GAS Positive
[2016-09-19] MEDS: DEXTROSE 5%-WATER 1,000 ML IV SCH (03:35)
[2016-09-19 04:40] VITALS: BP 123/59
[2016-09-19 05:24] LABS: EOSINOPHILS % (AUTO) 0 % (1.0-6.0); HEMATOCRIT 29.5 % (36-46); HEMOGLOBIN 9.8 g/dL (12.0-16.0); LYMPHOCYTES # (AUTO) 0.5 K/uL (1.0-4.8); LYMPHOCYTES % (AUTO) 1.8 % (22.0-44.0); MEAN CORPUSCULAR HEMOGLOBIN 30.8 pg (26.0-34.0); MEAN CORPUSCULAR HGB CONC 33.1 G/dL (31.0-37.0); MEAN CORPUSCULAR VOLUME 93 fL (80-100); MONOCYTES # (AUTO) 0.4 K/uL (0.1-1.0); MONOCYTES % (AUTO) 1.5 % (2.0-9.0); NEUTROPHILS # (AUTO) 27.1 K/uL (1.8-7.7); PLATELET COUNT (AUTO) 163 K/uL (150-450); RED BLOOD CELL COUNT(AUTO) 3.17 MIL/uL (4.00-5.20); RED CELL DISTRIBUTION WIDTH 14.2 % (11.5-14.5)
[2016-09-19 05:27] LABS: NEUTROPHILS % (AUTO) 96.7 % (40.0-70.0)
[2016-09-19 05:34] LABS: INR 1.1 (0.9-1.1)
[2016-09-19 06:05] LABS: ALANINE AMINOTRANSFERASE 1918 U/L (12-78); ALBUMIN 2.7 g/dL (3.4-5.0); AMYLASE 34 U/L (25-115); ANION GAP 9 mmol/L (8-16); ASPARTATE AMINOTRANSFERASE 657 U/L (15-37); BILIRUBIN,TOTAL 0.6 mg/dL (0.1-1.0); CALCIUM, TOTAL 7.5 mg/dL (8.8-10.5); CARBON DIOXIDE 32 mmol/L (22-29); CHLORIDE 102 mmol/L (98-107); CREATINE KINASE MB 16.8 ng/mL (0-5); CREATININE 0.93 mg/dL (0.60-1.30); GLOMERULAR FILTR. RATE CALC > 60 mL/min (>60); PHOSPHORUS 2.7 mg/dL (2.5-4.9); SODIUM SERUM 143 mmol/L (136-145); TOTAL PROTEIN, SERUM 5.3 g/dL (6.4-8.2); UREA NITROGEN, BLOOD 11 mg/dL (7-18)
[2016-09-19 06:08] LABS: CREATINE KINASE, TOTAL 1513 U/L (26-192); LACTIC ACID 2.6 mmol/L (0.4-2.0); POTASSIUM 2.8 mmol/L (3.5-5.1)
[2016-09-19] MEDS ORDERED: DEXTROSE 5%-WATER 1,000 ML IV SCH (06:51)
[2016-09-19] MEDS ORDERED: DEXTROSE 50%-WATER 25 GM/50 ML SYRINGE IVP PRN (07:00)
[2016-09-19] MEDS ORDERED: INSULIN REGULAR, HUMAN 100 UNITS in SODIUM CHLORIDE 0.9% 99 ML IV SCH ×2 (07:00)
[2016-09-19 07:11] LABS: REFLEX LACTIC ACID? YES YES
[2016-09-19 07:20] LABS: ABG A-A DIFF O2 115.8 mmHg (10-20.0); ABG BASE EXCESS 6.5 mmol/L (-2.0-3.0); ABG PCO2 40 mmHg (35-45); ABG PH 7.494 (7.350-7.450); TEMPERATURE, FAHRENHEIT, BG 98.6 FAHREN (96.0-98.6)
[2016-09-19] MEDS ORDERED: POTASSIUM CHLORIDE 40 MEQ in DEXTROSE 5%-WATER 1,000 ML IV SCH (07:30)
[2016-09-19] MEDS ORDERED: MAGNESIUM SULFATE 4 GM/WATER 100 ML IV ONE (07:30)
[2016-09-19 08:00] VITALS: BP 95/49
[2016-09-19] MEDS: PANTOPRAZOLE SODIUM 40 MG DR TABLET PO SCH (09:00)
[2016-09-19] MEDS: DOCUSATE SODIUM 100 MG CAPSULE PO SCH ×2 (09:00→21:00)
[2016-09-19 10:17] LABS: TEMPERATURE, FAHRENHEIT, BG 97.8 FAHREN (96.0-98.6)
[2016-09-19 10:23] LABS: ABG A-A DIFF O2 114.6 mmHg (10-20.0); ABG BASE EXCESS 6.7 mmol/L (-2.0-3.0); ABG HCO3 30.2 mmol/L (22.0-26.0); ABG OXYHEMOGLOBIN 97.5 % (94.0-100.0); ABG PCO2 37 mmHg (35-45); ABG PH 7.523 (7.350-7.450)
[2016-09-19] MEDS: CHLORHEXIDINE GLUCONATE 0.12% 15 ML UDCUP ORAL RINSE PO SCH ×2 (10:41→21:47)
[2016-09-19 11:51] LABS: ABG A-A DIFF O2 338.2 mmHg (10-20.0); ABG BASE EXCESS 6.5 mmol/L (-2.0-3.0); ABG HCO3 29.9 mmol/L (22.0-26.0); ABG OXYHEMOGLOBIN 99.2 % (94.0-100.0); ABG PCO2 42 mmHg (35-45); ABG PH 7.471 (7.350-7.450)
[2016-09-19 12:00] VITALS: BP 104/51
[2016-09-19 12:30] LABS: EOSINOPHILS % (AUTO) 0 % (1.0-6.0); HEMOGLOBIN 9.3 g/dL (12.0-16.0); LYMPHOCYTES # (AUTO) 0.6 K/uL (1.0-4.8); MEAN CORPUSCULAR HEMOGLOBIN 30.7 pg (26.0-34.0); MEAN CORPUSCULAR HGB CONC 33.3 G/dL (31.0-37.0); MEAN CORPUSCULAR VOLUME 92 fL (80-100); MONOCYTES # (AUTO) 0.4 K/uL (0.1-1.0); MONOCYTES % (AUTO) 1.6 % (2.0-9.0); NEUTROPHILS # (AUTO) 26.9 K/uL (1.8-7.7); PLATELET COUNT (AUTO) 158 K/uL (150-450); RED BLOOD CELL COUNT(AUTO) 3.04 MIL/uL (4.00-5.20); RED CELL DISTRIBUTION WIDTH 14.1 % (11.5-14.5)
[2016-09-19 12:33] LABS: NEUTROPHILS % (AUTO) 96.4 % (40.0-70.0)
[2016-09-19 12:38] LABS: INR 1.1 (0.9-1.1); PROTHROMBIN TIME 11.4 SEC (9.4-11.6)
[2016-09-19 12:54] LABS: LACTIC ACID 2.8 mmol/L (0.4-2.0)
[2016-09-19 13:08] LABS: ALANINE AMINOTRANSFERASE 1769 U/L (12-78); ALBUMIN 2.8 g/dL (3.4-5.0); AMYLASE 47 U/L (25-115); ANION GAP 9 mmol/L (8-16); ASPARTATE AMINOTRANSFERASE 537 U/L (15-37); BILIRUBIN,TOTAL 0.6 mg/dL (0.1-1.0); CALCIUM, TOTAL 7.6 mg/dL (8.8-10.5); CARBON DIOXIDE 31 mmol/L (22-29); CHLORIDE 101 mmol/L (98-107); CREATINE KINASE MB 10.6 ng/mL (0-5); CREATININE 0.82 mg/dL (0.60-1.30); GLOMERULAR FILTR. RATE CALC > 60 mL/min (>60); PHOSPHORUS 2.1 mg/dL (2.5-4.9); SODIUM SERUM 141 mmol/L (136-145); TOTAL PROTEIN, SERUM 5.3 g/dL (6.4-8.2); UREA NITROGEN, BLOOD 11 mg/dL (7-18)
[2016-09-19 13:11] LABS: CREATINE KINASE, TOTAL 1492 U/L (26-192)
[2016-09-19 13:13] LABS: POTASSIUM 2.9 mmol/L (3.5-5.1)
[2016-09-19] MEDS: POTASSIUM CHL 10 MEQ/WATER 50 ML IV PRN ×3 (13:35→14:58)
[2016-09-19 15:12] LABS: ABG BASE EXCESS 5.9 mmol/L (-2.0-3.0); ABG OXYHEMOGLOBIN 98.1 % (94.0-100.0); TEMPERATURE, FAHRENHEIT, BG 98.6 FAHREN (96.0-98.6)
[2016-09-19 15:15] LABS: ABG A-A DIFF O2 110.1 mmHg (10-20.0); ABG HCO3 29.4 mmol/L (22.0-26.0); ABG PCO2 43 mmHg (35-45); ABG PH 7.462 (7.350-7.450)
[2016-09-19 16:00] VITALS: BP 115/58
[2016-09-19] MEDS ORDERED: SODIUM CHLORIDE 0.9% 250 ML IV ONE (16:15)
[2016-09-19 16:58] LABS: HEMATOCRIT 28.2 % (36-46); HEMOGLOBIN 9.1 g/dL (12.0-16.0); MEAN CORPUSCULAR HEMOGLOBIN 29.8 pg (26.0-34.0); MEAN CORPUSCULAR HGB CONC 32.2 G/dL (31.0-37.0); MEAN CORPUSCULAR VOLUME 92 fL (80-100); PLATELET COUNT (AUTO) 155 K/uL (150-450); RED BLOOD CELL COUNT(AUTO) 3.05 MIL/uL (4.00-5.20); RED CELL DISTRIBUTION WIDTH 14.2 % (11.5-14.5)
[2016-09-19 17:03] LABS: WHITE BLOOD COUNT (AUTO) 31.5 K/uL (4.5-11.0)
[2016-09-19 17:10] LABS: INR 1.1 (0.9-1.1); PROTHROMBIN TIME 11.4 SEC (9.4-11.6)
[2016-09-19 17:15] LABS: ABG A-A DIFF O2 392.5 mmHg (10-20.0); ABG BASE EXCESS 4.6 mmol/L (-2.0-3.0); ABG HCO3 28.3 mmol/L (22.0-26.0); ABG OXYHEMOGLOBIN 99.2 % (94.0-100.0); ABG PCO2 44 mmHg (35-45); ABG PH 7.434 (7.350-7.450); TEMPERATURE, FAHRENHEIT, BG 100.1 FAHREN (96.0-98.6)
[2016-09-19 17:37] LABS: ALANINE AMINOTRANSFERASE 1703 U/L (12-78); ALBUMIN 2.7 g/dL (3.4-5.0); AMYLASE 53 U/L (25-115); ANION GAP 6 mmol/L (8-16); ASPARTATE AMINOTRANSFERASE 479 U/L (15-37); BILIRUBIN,TOTAL 0.5 mg/dL (0.1-1.0); CALCIUM, TOTAL 7.6 mg/dL (8.8-10.5); CARBON DIOXIDE 32 mmol/L (22-29); CHLORIDE 103 mmol/L (98-107); CREATINE KINASE MB 8.5 ng/mL (0-5); CREATININE 0.78 mg/dL (0.60-1.30); GLOMERULAR FILTR. RATE CALC > 60 mL/min (>60); LACTIC ACID 2.2 mmol/L (0.4-2.0); PHOSPHORUS 2.2 mg/dL (2.5-4.9); POTASSIUM 3.8 mmol/L (3.5-5.1); SODIUM SERUM 141 mmol/L (136-145); TOTAL PROTEIN, SERUM 5.3 g/dL (6.4-8.2); UREA NITROGEN, BLOOD 11 mg/dL (7-18)
[2016-09-19 17:38] LABS: CREATINE KINASE, TOTAL 1399 U/L (26-192)
[2016-09-19 17:45] LABS: BAND NEUTROPHILS % (MANUAL) 8 % (1-5); LYMPHOCYTES % (MANUAL) 6 % (22-44); TOTAL CELLS COUNTED 100
[2016-09-19 17:46] LABS: RBC MORPHOLOGY COMMENT NORMAL RBC MORPH
[2016-09-19] MEDS: POTASSIUM CHLORIDE 40 MEQ in SODIUM CHLORIDE 0.45% 1,000 ML IV SCH (17:54)
[2016-09-19] MEDS: VANCOMYCIN HCL 1 GM/D5% WATER 200 ML IV SCH (17:54)
[2016-09-19] MEDS ORDERED: SODIUM CHLORIDE 0.9% 500 ML IV ONE (17:57)
[2016-09-19 19:41] LABS: ABG A-A DIFF O2 302.8 mmHg (10-20.0); ABG BASE EXCESS 0.3 mmol/L (-2.0-3.0); ABG OXYHEMOGLOBIN 99.2 % (94.0-100.0); ABG PCO2 35 mmHg (35-45); ABG PH 7.456 (7.350-7.450); TEMPERATURE, FAHRENHEIT, BG 97.9 FAHREN (96.0-98.6)
[2016-09-19 20:00] VITALS: BP 100/51
[2016-09-19 20:16] LABS: ABG A-A DIFF O2 132.9 mmHg (10-20.0); ABG BASE EXCESS 2.9 mmol/L (-2.0-3.0); ABG OXYHEMOGLOBIN 97.6 % (94.0-100.0); ABG PCO2 36 mmHg (35-45); ABG PH 7.487 (7.350-7.450); TEMPERATURE, FAHRENHEIT, BG 97.6 FAHREN (96.0-98.6)
[2016-09-19 20:16] LABS: ALLEN TEST, BLOOD GAS POS
[2016-09-19 21:07] LABS: HEMATOCRIT 27.2 % (36-46); HEMOGLOBIN 8.8 g/dL (12.0-16.0); MEAN CORPUSCULAR HEMOGLOBIN 29.7 pg (26.0-34.0); MEAN CORPUSCULAR HGB CONC 32.2 G/dL (31.0-37.0); MEAN CORPUSCULAR VOLUME 92 fL (80-100); PLATELET COUNT (AUTO) 141 K/uL (150-450); RED BLOOD CELL COUNT(AUTO) 2.95 MIL/uL (4.00-5.20); RED CELL DISTRIBUTION WIDTH 14.3 % (11.5-14.5)
[2016-09-19 21:16] LABS: INR 1.1 (0.9-1.1); PROTHROMBIN TIME 11.5 SEC (9.4-11.6)
[2016-09-19 21:21] LABS: WHITE BLOOD COUNT (AUTO) 30.3 K/uL (4.5-11.0)
[2016-09-19 21:24] LABS: ALANINE AMINOTRANSFERASE 1661 U/L (12-78); ALBUMIN 2.6 g/dL (3.4-5.0); ANION GAP 8 mmol/L (8-16); ASPARTATE AMINOTRANSFERASE 428 U/L (15-37); BILIRUBIN,TOTAL 0.6 mg/dL (0.1-1.0); CALCIUM, TOTAL 7.8 mg/dL (8.8-10.5); CARBON DIOXIDE 30 mmol/L (22-29); CHLORIDE 104 mmol/L (98-107); CREATININE 0.73 mg/dL (0.60-1.30); GLOMERULAR FILTR. RATE CALC > 60 mL/min (>60); PHOSPHORUS 1.9 mg/dL (2.5-4.9); POTASSIUM 3.7 mmol/L (3.5-5.1); SODIUM SERUM 142 mmol/L (136-145); TOTAL PROTEIN, SERUM 5.3 g/dL (6.4-8.2); UREA NITROGEN, BLOOD 8 mg/dL (7-18)
[2016-09-19 21:30] LABS: LACTIC ACID 1.7 mmol/L (0.4-2.0)
[2016-09-19 21:38] LABS: BAND NEUTROPHILS % (MANUAL) 12 % (1-5); LYMPHOCYTES % (MANUAL) 6 % (22-44); TOTAL CELLS COUNTED 100; WBC MORPHOLOGY TOXIC VACUOLATION
[2016-09-19 21:39] LABS: RBC MORPHOLOGY COMMENT NORMAL RBC MORPH
[2016-09-19 23:03] LABS: ABG A-A DIFF O2 130.8 mmHg (10-20.0); ABG BASE EXCESS 1.4 mmol/L (-2.0-3.0); ABG HCO3 25.9 mmol/L (22.0-26.0); ABG OXYHEMOGLOBIN 97.6 % (94.0-100.0); ABG PCO2 32 mmHg (35-45); ABG PH 7.508 (7.350-7.450); TEMPERATURE, FAHRENHEIT, BG 98.6 FAHREN (96.0-98.6)
[2016-09-19 23:07] LABS: INSIPIRATORY PRESSURE, BG 28 cm H2O
[2016-09-19] MEDS ORDERED: VECURONIUM BROMIDE 10 MG/VIAL IVP ONE (23:30)
[2016-09-19] MEDS ORDERED: ACETYLCYSTEINE 20% 200 MG/ML 4 ML NEB SOLUTION NEB ONE (23:30)
[2016-09-19] MEDS ORDERED: NALOXONE HCL 1 MG/ML 2 ML SYG IVP ONE (23:30)
[2016-09-19] MEDS: ACETYLCYSTEINE 20% 200 MG/ML 4 ML NEB SOLUTION NEB SCH (23:41)
[2016-09-19] MEDS ORDERED: ALBUMIN HUMAN 25%-25GM/100ML 100 ML IV ONE (23:45)
[2016-09-19] MEDS ORDERED: FUROSEMIDE 40 MG/4 ML VIAL IVP ONE ×2 (23:45)
[2016-09-20] VITALS: BP 107/52
[2016-09-20] MEDS: CLINDAMYCIN 300 MG/D5% WATER 50 ML IV SCH ×3 (00:18→16:16)
[2016-09-20] MEDS: PIPERACILLIN SODIUM/TAZOBACTAM 2.25 GM in DEXTROSE 5%-WATER 50 ML IV SCH ×3 (00:18→16:16)
[2016-09-20 00:28] LABS: HEMATOCRIT 27.2 % (36-46); HEMOGLOBIN 8.9 g/dL (12.0-16.0); MEAN CORPUSCULAR HEMOGLOBIN 30.7 pg (26.0-34.0); MEAN CORPUSCULAR HGB CONC 32.6 G/dL (31.0-37.0); MEAN CORPUSCULAR VOLUME 94 fL (80-100); PLATELET COUNT (AUTO) 157 K/uL (150-450); RED BLOOD CELL COUNT(AUTO) 2.88 MIL/uL (4.00-5.20); RED CELL DISTRIBUTION WIDTH 13.7 % (11.5-14.5); WHITE BLOOD COUNT (AUTO) 27.1 K/uL (4.5-11.0)
[2016-09-20 00:32] LABS: INR 1.1 (0.9-1.1); PROTHROMBIN TIME 11.4 SEC (9.4-11.6)
[2016-09-20 00:46] LABS: LACTIC ACID 1.3 mmol/L (0.4-2.0)
[2016-09-20 00:54] LABS: ALANINE AMINOTRANSFERASE 1587 U/L (12-78); ALBUMIN 2.7 g/dL (3.4-5.0); ANION GAP 6 mmol/L (8-16); ASPARTATE AMINOTRANSFERASE 414 U/L (15-37); BILIRUBIN,TOTAL 0.6 mg/dL (0.1-1.0); CALCIUM, TOTAL 7.8 mg/dL (8.8-10.5); CARBON DIOXIDE 31 mmol/L (22-29); CHLORIDE 106 mmol/L (98-107); CREATININE 0.71 mg/dL (0.60-1.30); GLOMERULAR FILTR. RATE CALC > 60 mL/min (>60); PHOSPHORUS 1.9 mg/dL (2.5-4.9); POTASSIUM 3.7 mmol/L (3.5-5.1); SODIUM SERUM 143 mmol/L (136-145); TOTAL PROTEIN, SERUM 5.4 g/dL (6.4-8.2); UREA NITROGEN, BLOOD 10 mg/dL (7-18)
[2016-09-20] MEDS: ACETYLCYSTEINE 20% 200 MG/ML 4 ML NEB SOLUTION NEB SCH ×9 (01:22→17:00)
[2016-09-20] MEDS: ALBUTEROL SULFATE 2.5 MG/0.5 ML NEB SOLUTION NEB SCH ×9 (01:22→17:00)
[2016-09-20] MEDS: IPRATROPIUM BROMIDE 0.5 MG/2.5 ML NEB SOLUTION NEB SCH ×10 (01:22→19:00)
[2016-09-20] MEDS ORDERED: ALBUMIN HUMAN 25%-25GM/100ML 100 ML IV ONE (02:45)
[2016-09-20 03:16] LABS: ABG A-A DIFF O2 178.4 mmHg (10-20.0); ABG BASE EXCESS 6.8 mmol/L (-2.0-3.0); ABG HCO3 30.2 mmol/L (22.0-26.0); ABG PCO2 41 mmHg (35-45); ABG PH 7.488 (7.350-7.450); TEMPERATURE, FAHRENHEIT, BG 100.3 FAHREN (96.0-98.6)
[2016-09-20 03:18] LABS: INSIPIRATORY PRESSURE, BG 28 cm H2O
[2016-09-20 03:20] LABS: BAND NEUTROPHILS % (MANUAL) 3 % (1-5); LYMPHOCYTES % (MANUAL) 4 % (22-44); TOTAL CELLS COUNTED 100
[2016-09-20] MEDS: POTASSIUM CHL 10 MEQ/WATER 50 ML IV SCH ×2 (03:33→04:36)
[2016-09-20 03:39] LABS: ABG A-A DIFF O2 374.1 mmHg (10-20.0); ABG BASE EXCESS 4.4 mmol/L (-2.0-3.0); ABG HCO3 28.4 mmol/L (22.0-26.0); ABG PCO2 35 mmHg (35-45); ABG PH 7.508 (7.350-7.450); TEMPERATURE, FAHRENHEIT, BG 100.4 FAHREN (96.0-98.6)
[2016-09-20] MEDS: POTASSIUM CHLORIDE 40 MEQ in SODIUM CHLORIDE 0.45% 1,000 ML IV SCH ×3 (03:48→16:00)
[2016-09-20 04:00] VITALS: BP 128/24
[2016-09-20] MEDS: FUROSEMIDE 40 MG/4 ML VIAL IVP SCH ×4 (04:29→16:00)
[2016-09-20] MEDS: ALBUMIN HUMAN 25%-25GM/100ML 100 ML IV SCH ×4 (04:29→16:18)
[2016-09-20 05:04] LABS: EOSINOPHILS % (AUTO) 0 % (1.0-6.0); HEMATOCRIT 25.9 % (36-46); HEMOGLOBIN 8.5 g/dL (12.0-16.0); LYMPHOCYTES # (AUTO) 0.4 K/uL (1.0-4.8); LYMPHOCYTES % (AUTO) 1.8 % (22.0-44.0); MEAN CORPUSCULAR HEMOGLOBIN 30.9 pg (26.0-34.0); MEAN CORPUSCULAR HGB CONC 32.9 G/dL (31.0-37.0); MEAN CORPUSCULAR VOLUME 94 fL (80-100); MONOCYTES # (AUTO) 0.5 K/uL (0.1-1.0); NEUTROPHILS # (AUTO) 22.7 K/uL (1.8-7.7); PLATELET COUNT (AUTO) 146 K/uL (150-450); RED BLOOD CELL COUNT(AUTO) 2.77 MIL/uL (4.00-5.20); WHITE BLOOD COUNT (AUTO) 23.6 K/uL (4.5-11.0)
[2016-09-20 05:07] LABS: NEUTROPHILS % (AUTO) 96.2 % (40.0-70.0)
[2016-09-20 05:10] LABS: INR 1.1 (0.9-1.1); PROTHROMBIN TIME 11.5 SEC (9.4-11.6)
[2016-09-20 05:17] LABS: LACTIC ACID 1.6 mmol/L (0.4-2.0)
[2016-09-20 05:24] LABS: ALANINE AMINOTRANSFERASE 1431 U/L (12-78); ALBUMIN 3.6 g/dL (3.4-5.0); ANION GAP 5 mmol/L (8-16); ASPARTATE AMINOTRANSFERASE 368 U/L (15-37); BILIRUBIN,TOTAL 0.7 mg/dL (0.1-1.0); CALCIUM, TOTAL 8.3 mg/dL (8.8-10.5); CARBON DIOXIDE 35 mmol/L (22-29); CHLORIDE 110 mmol/L (98-107); CREATININE 0.95 mg/dL (0.60-1.30); GLOMERULAR FILTR. RATE CALC > 60 mL/min (>60); PHOSPHORUS 1.8 mg/dL (2.5-4.9); POTASSIUM 3.4 mmol/L (3.5-5.1); SODIUM SERUM 150 mmol/L (136-145); TOTAL PROTEIN, SERUM 6.2 g/dL (6.4-8.2); UREA NITROGEN, BLOOD 11 mg/dL (7-18)
[2016-09-20] MEDS: LEVOTHYROXINE SODIUM 200 MCG in SODIUM CHLORIDE 0.9% 500 ML IV SCH ×2 (06:07→16:16)
[2016-09-20] MEDS ORDERED: POTASSIUM PHOS,M-BASIC-D-BASIC 20 MMOL in DEXTROSE 5%-WATER 150 ML IV ONE (06:45)
[2016-09-20 08:00] VITALS: BP 129/61
[2016-09-20 08:11] LABS: ABG A-A DIFF O2 350.4 mmHg (10-20.0); ABG BASE EXCESS 10.7 mmol/L (-2.0-3.0); ABG HCO3 33.6 mmol/L (22.0-26.0); ABG OXYHEMOGLOBIN 98.5 % (94.0-100.0); ABG PCO2 43 mmHg (35-45); ABG PH 7.511 (7.350-7.450); TEMPERATURE, FAHRENHEIT, BG 99.9 FAHREN (96.0-98.6)
[2016-09-20] MEDS ORDERED: LABETALOL HCL 5 MG/ML 20 ML VIAL IVP ONE (08:27)
[2016-09-20] MEDS ORDERED: SODIUM CHLORIDE 0.45% 500 ML IV ONE (08:30)
[2016-09-20 08:37] LABS: EOSINOPHILS % (AUTO) 0 % (1.0-6.0); HEMATOCRIT 24.8 % (36-46); HEMOGLOBIN 8.2 g/dL (12.0-16.0); LYMPHOCYTES # (AUTO) 0.4 K/uL (1.0-4.8); LYMPHOCYTES % (AUTO) 1.7 % (22.0-44.0); MEAN CORPUSCULAR HEMOGLOBIN 30.5 pg (26.0-34.0); MEAN CORPUSCULAR HGB CONC 32.9 G/dL (31.0-37.0); MEAN CORPUSCULAR VOLUME 93 fL (80-100); MONOCYTES # (AUTO) 0.6 K/uL (0.1-1.0); MONOCYTES % (AUTO) 2.7 % (2.0-9.0); NEUTROPHILS # (AUTO) 20.2 K/uL (1.8-7.7); PLATELET COUNT (AUTO) 148 K/uL (150-450); RED BLOOD CELL COUNT(AUTO) 2.68 MIL/uL (4.00-5.20); RED CELL DISTRIBUTION WIDTH 14.1 % (11.5-14.5); WHITE BLOOD COUNT (AUTO) 21.1 K/uL (4.5-11.0)
[2016-09-20 08:38] LABS: NEUTROPHILS % (AUTO) 95.6 % (40.0-70.0)
[2016-09-20 08:42] LABS: INR 1.1 (0.9-1.1); PROTHROMBIN TIME 11.9 SEC (9.4-11.6)
[2016-09-20 08:59] LABS: ALANINE AMINOTRANSFERASE 1313 U/L (12-78); ALBUMIN 3.8 g/dL (3.4-5.0); ANION GAP 7 mmol/L (8-16); ASPARTATE AMINOTRANSFERASE 329 U/L (15-37); BILIRUBIN,TOTAL 0.8 mg/dL (0.1-1.0); CALCIUM, TOTAL 8.4 mg/dL (8.8-10.5); CARBON DIOXIDE 37 mmol/L (22-29); CHLORIDE 114 mmol/L (98-107); CREATININE 0.93 mg/dL (0.60-1.30); GLOMERULAR FILTR. RATE CALC > 60 mL/min (>60); PHOSPHORUS 2.5 mg/dL (2.5-4.9); POTASSIUM 3.5 mmol/L (3.5-5.1); SODIUM SERUM 158 mmol/L (136-145); TOTAL PROTEIN, SERUM 6.3 g/dL (6.4-8.2); UREA NITROGEN, BLOOD 12 mg/dL (7-18)
[2016-09-20] MEDS: PANTOPRAZOLE SODIUM 40 MG DR TABLET PO SCH (09:00)
[2016-09-20] MEDS: DOCUSATE SODIUM 100 MG CAPSULE PO SCH (09:00)
[2016-09-20 09:03] LABS: LACTIC ACID 1.6 mmol/L (0.4-2.0)
[2016-09-20] MEDS: CHLORHEXIDINE GLUCONATE 0.12% 15 ML UDCUP ORAL RINSE PO SCH (10:04)
[2016-09-20 12:00] VITALS: BP 131/63
[2016-09-20] MEDS ORDERED: AZITHROMYCIN 500 MG/NS 250 ML IV ONE (12:00)
[2016-09-20 12:03] LABS: GLUCOSE COMMENT 1 Received Meds; GLUCOSE,POINT OF CARE 202 MG/DL (70-110)
[2016-09-20 12:03] LABS: GLUCOSE COMMENT 1 Received Meds; GLUCOSE,POINT OF CARE 176 MG/DL (70-110)
[2016-09-20 12:03] LABS: EOSINOPHILS % (AUTO) 0 % (1.0-6.0); HEMATOCRIT 25.1 % (36-46); HEMOGLOBIN 8.1 g/dL (12.0-16.0); LYMPHOCYTES # (AUTO) 0.4 K/uL (1.0-4.8); LYMPHOCYTES % (AUTO) 1.9 % (22.0-44.0); MEAN CORPUSCULAR HEMOGLOBIN 30.1 pg (26.0-34.0); MEAN CORPUSCULAR HGB CONC 32.4 G/dL (31.0-37.0); MEAN CORPUSCULAR VOLUME 93 fL (80-100); MONOCYTES % (AUTO) 2.7 % (2.0-9.0); NEUTROPHILS # (AUTO) 19.7 K/uL (1.8-7.7); PLATELET COUNT (AUTO) 147 K/uL (150-450); RED CELL DISTRIBUTION WIDTH 14.6 % (11.5-14.5); WHITE BLOOD COUNT (AUTO) 20.7 K/uL (4.5-11.0)
[2016-09-20 12:04] LABS: MONOCYTES # (AUTO) 0.6 K/uL (0.1-1.0)
[2016-09-20 12:05] LABS: NEUTROPHILS % (AUTO) 95.4 % (40.0-70.0)
[2016-09-20 12:12] LABS: GLUCOSE COMMENT 1 Received Meds; GLUCOSE,POINT OF CARE 185 MG/DL (70-110)
[2016-09-20 12:12] LABS: GLUCOSE COMMENT 1 Received Meds; GLUCOSE,POINT OF CARE 173 MG/DL (70-110)
[2016-09-20 12:12] LABS: INR 1.1 (0.9-1.1); PROTHROMBIN TIME 12.1 SEC (9.4-11.6)
[2016-09-20 12:18] LABS: LACTIC ACID 1.6 mmol/L (0.4-2.0)
[2016-09-20 12:25] LABS: ALANINE AMINOTRANSFERASE 1308 U/L (12-78); ANION GAP 7 mmol/L (8-16); ASPARTATE AMINOTRANSFERASE 313 U/L (15-37); BILIRUBIN,TOTAL 0.7 mg/dL (0.1-1.0); CALCIUM, TOTAL 8.5 mg/dL (8.8-10.5); CARBON DIOXIDE 39 mmol/L (22-29); CHLORIDE 117 mmol/L (98-107); GLOMERULAR FILTR. RATE CALC > 60 mL/min (>60); PHOSPHORUS 3.4 mg/dL (2.5-4.9); POTASSIUM 3.4 mmol/L (3.5-5.1); TOTAL PROTEIN, SERUM 6.7 g/dL (6.4-8.2); UREA NITROGEN, BLOOD 15 mg/dL (7-18)
[2016-09-20 12:30] LABS: SODIUM SERUM 163 mmol/L (136-145)
[2016-09-20] MEDS ORDERED: DEXTROSE 5%-WATER 500 ML IV ONE (12:45)
[2016-09-20 13:18] LABS: GLUCOSE, URINE (UA) NEGATIVE (NEGATIVE); KETONES,URINE NEGATIVE (NEGATIVE); LEUKOCYTE ESTERASE ,URINE TRACE (NEGATIVE); OCCULT BLOOD,URINE MODERATE (NEGATIVE); PH,URINE 6.5 (5.0-8.0); PROTEIN,URINE NEGATIVE (NEGATIVE)
[2016-09-20 13:36] LABS: ABG A-A DIFF O2 70.3 mmHg (10-20.0); ABG BASE EXCESS 12.9 mmol/L (-2.0-3.0); ABG HCO3 35.4 mmol/L (22.0-26.0); ABG OXYHEMOGLOBIN 97.5 % (94.0-100.0); ABG PCO2 50 mmHg (35-45); ABG PH 7.482 (7.350-7.450); TEMPERATURE, FAHRENHEIT, BG 100.3 FAHREN (96.0-98.6)
[2016-09-20 13:42] LABS: ADD UA MICROSCOPIC YES
[2016-09-20 13:43] LABS: APPEARANCE,URINE HAZY (CLEAR)
[2016-09-20] MEDS ORDERED: POTASSIUM CHLORIDE 20 MEQ ER TABLET PO PRN (13:45)
[2016-09-20] MEDS ORDERED: POTASSIUM CHL 10 MEQ/WATER 50 ML IV PRN ×3 (13:45)
[2016-09-20] MEDS ORDERED: POTASSIUM CHLORIDE 10% 40 MEQ/30 ML LIQUID UDCUP NG PRN ×2 (13:45)
[2016-09-20 13:55] LABS: RBC,URINE 0-2 /HPF (0-2)
[2016-09-20 13:57] LABS: URINALYSIS COMMENT Rare Trich. seen.
[2016-09-20 13:59] LABS: SQUAMOUS EPITHELIAL CELL,UR Few /LPF (None Seen)
[2016-09-20 14:14] LABS: ABG A-A DIFF O2 224.9 mmHg (10-20.0); ABG HCO3 34.6 mmol/L (22.0-26.0); ABG OXYHEMOGLOBIN 98.2 % (94.0-100.0); ABG PCO2 50 mmHg (35-45); ABG PH 7.471 (7.350-7.450); TEMPERATURE, FAHRENHEIT, BG 100.3 FAHREN (96.0-98.6)
[2016-09-20] MEDS: POTASSIUM CHL 10 MEQ/WATER 50 ML IV PRN ×3 (14:30→16:01)
[2016-09-20 16:00] VITALS: BP 130/64
[2016-09-20 16:27] LABS: HEMATOCRIT 24.4 % (36-46); HEMOGLOBIN 7.7 g/dL (12.0-16.0); MEAN CORPUSCULAR HEMOGLOBIN 29.7 pg (26.0-34.0); MEAN CORPUSCULAR HGB CONC 31.8 G/dL (31.0-37.0); MEAN CORPUSCULAR VOLUME 94 fL (80-100); RED BLOOD CELL COUNT(AUTO) 2.61 MIL/uL (4.00-5.20); RED CELL DISTRIBUTION WIDTH 14.6 % (11.5-14.5); WHITE BLOOD COUNT (AUTO) 21.3 K/uL (4.5-11.0)
[2016-09-20 16:38] LABS: INR 1.2 (0.9-1.1); PROTHROMBIN TIME 12.3 SEC (9.4-11.6)
[2016-09-20 16:40] LABS: PLATELET COUNT (AUTO) 140 K/uL (150-450)
[2016-09-20 16:44] LABS: BAND NEUTROPHILS % (MANUAL) 4 % (1-5); EOSINOPHILS % (MANUAL) 1 % (1-6); LYMPHOCYTES % (MANUAL) 1 % (22-44); TOTAL CELLS COUNTED 100
[2016-09-20 16:47] LABS: RBC MORPHOLOGY COMMENT ABNORMAL RBC MORPH
[2016-09-20 16:52] LABS: LACTIC ACID 1.9 mmol/L (0.4-2.0)
[2016-09-20 16:59] LABS: ALANINE AMINOTRANSFERASE 1110 U/L (12-78); ALBUMIN 3.9 g/dL (3.4-5.0); ANION GAP 7 mmol/L (8-16); ASPARTATE AMINOTRANSFERASE 277 U/L (15-37); BILIRUBIN,TOTAL 0.6 mg/dL (0.1-1.0); CALCIUM, TOTAL 8.4 mg/dL (8.8-10.5); CARBON DIOXIDE 36 mmol/L (22-29); CHLORIDE 116 mmol/L (98-107); CREATININE 0.99 mg/dL (0.60-1.30); GLOMERULAR FILTR. RATE CALC > 60 mL/min (>60); PHOSPHORUS 2.4 mg/dL (2.5-4.9); POTASSIUM 3.9 mmol/L (3.5-5.1); SODIUM SERUM 159 mmol/L (136-145); TOTAL PROTEIN, SERUM 6.4 g/dL (6.4-8.2); UREA NITROGEN, BLOOD 16 mg/dL (7-18)
[2016-09-20 17:37] LABS: GLUCOSE COMMENT 1 Received Meds; GLUCOSE,POINT OF CARE 222 MG/DL (70-110)
[2016-09-20 17:37] LABS: GLUCOSE,POINT OF CARE 208 MG/DL (70-110)
[2016-09-20 17:37] LABS: GLUCOSE COMMENT 1 Received Meds; GLUCOSE,POINT OF CARE 189 MG/DL (70-110)
[2016-09-20 17:54] LABS: INSIPIRATORY PRESSURE, BG 28 cm H2O
[2016-09-20] MEDS: VANCOMYCIN HCL 1 GM/D5% WATER 200 ML IV SCH (18:15)
[2016-09-20 18:22] LABS: ABG A-A DIFF O2 87.2 mmHg (10-20.0); ABG BASE EXCESS 5.6 mmol/L (-2.0-3.0); ABG HCO3 29.3 mmol/L (22.0-26.0); ABG OXYHEMOGLOBIN 98.1 % (94.0-100.0); ABG PCO2 35 mmHg (35-45); ABG PH 7.523 (7.350-7.450); TEMPERATURE, FAHRENHEIT, BG 100.7 FAHREN (96.0-98.6)
[2016-09-20 18:23] LABS: INSIPIRATORY PRESSURE, BG 28 cm H2O
[2016-09-20 18:26] LABS: ABG HCO3 27.2 mmol/L (22.0-26.0); ABG OXYHEMOGLOBIN 99.8 % (94.0-100.0); ABG PCO2 34 mmHg (35-45); TEMPERATURE, FAHRENHEIT, BG 98.6 FAHREN (96.0-98.6)
[2016-09-20 18:27] LABS: ABG A-A DIFF O2 341.6 mmHg (10-20.0); INSIPIRATORY PRESSURE, BG 28 cm H2O
[2016-09-20 21:16] LABS: ABG A-A DIFF O2 200.4 mmHg (10-20.0); ABG HCO3 32.4 mmol/L (22.0-26.0); ABG OXYHEMOGLOBIN 97.2 % (94.0-100.0); ABG PCO2 33 mmHg (35-45); ABG PH 7.593 (7.350-7.450); TEMPERATURE, FAHRENHEIT, BG 98.6 FAHREN (96.0-98.6)
[2016-09-21 01:29] LABS: GLUCOSE,POINT OF CARE 172 MG/DL (70-110)
[2016-09-21 01:35] LABS: GLUCOSE,POINT OF CARE 155 MG/DL (70-110)
[2016-09-21 01:35] LABS: GLUCOSE,POINT OF CARE 162 MG/DL (70-110)
[2016-09-21 01:35] LABS: GLUCOSE COMMENT 1 Received Meds; GLUCOSE,POINT OF CARE 150 MG/DL (70-110)
[2016-09-21 01:35] LABS: GLUCOSE,POINT OF CARE 158 MG/DL (70-110)
[2016-09-21 01:35] LABS: GLUCOSE,POINT OF CARE 155 MG/DL (70-110)
[2016-09-21 01:35] LABS: GLUCOSE,POINT OF CARE 152 MG/DL (70-110)
[2016-09-21 01:35] LABS: GLUCOSE COMMENT 1 Received Meds; GLUCOSE,POINT OF CARE 149 MG/DL (70-110)
[2016-09-21 01:39] LABS: GLUCOSE,POINT OF CARE 213 MG/DL (70-110)
[2016-09-21 01:39] LABS: GLUCOSE,POINT OF CARE 162 MG/DL (70-110)
[2016-09-21 01:39] LABS: GLUCOSE COMMENT 1 Received Meds; GLUCOSE,POINT OF CARE 136 MG/DL (70-110)
[2016-09-21 01:39] LABS: GLUCOSE COMMENT 1 Received Meds; GLUCOSE,POINT OF CARE 167 MG/DL (70-110)
[2016-09-21 01:39] LABS: GLUCOSE,POINT OF CARE 152 MG/DL (70-110)
[2016-09-21 01:39] LABS: GLUCOSE,POINT OF CARE 146 MG/DL (70-110)
[2016-09-21 01:39] LABS: GLUCOSE,POINT OF CARE 150 MG/DL (70-110)
[2016-09-21 01:39] LABS: GLUCOSE,POINT OF CARE 180 MG/DL (70-110)
[2016-09-21 01:39] LABS: GLUCOSE,POINT OF CARE 171 MG/DL (70-110)
[2016-09-21 01:44] LABS: GLUCOSE,POINT OF CARE 152 MG/DL (70-110)
[2016-09-21] MEDS ORDERED: LIDOCAINE HCL 4% 50 ML SOLUTION TP ONE (03:09)
[2016-09-21] MEDS ORDERED: LIDOCAINE HCL 2% 30 ML JELLY TP ONE ×2 (03:09)
[2016-09-21 14:58] LABS: GLUCOSE,POINT OF CARE 162 MG/DL (70-110)
[2016-09-21 14:58] LABS: GLUCOSE COMMENT 1 Received Meds; GLUCOSE,POINT OF CARE 142 MG/DL (70-110)
[2016-09-21 14:58] LABS: GLUCOSE,POINT OF CARE 191 MG/DL (70-110)
[2016-09-21 14:58] LABS: GLUCOSE,POINT OF CARE 164 MG/DL (70-110)
[2016-09-21 14:58] LABS: GLUCOSE,POINT OF CARE 135 MG/DL (70-110)
[2016-09-21 14:58] LABS: GLUCOSE,POINT OF CARE 167 MG/DL (70-110)
== END 2016-09-21 03:10 | disposition expired | DRG 870 ==
LOC: EMS 05:32 → ICU 18:01
PROVIDERS: ADMIT Internal Medicine; ATTEND Internal Medicine
PROC: 5A1955Z Respiratory Ventilation, Greater than 96 Consecutive Hours (ICD-10-PCS; principal; 2016-09-16)
PROC: 0BH17EZ Insertion of Endotracheal Airway into Trachea, Via Natural or Artificial Opening (ICD-10-PCS; 2016-09-16)
PROC: 5A12012 Performance of Cardiac Output, Single, Manual (ICD-10-PCS; 2016-09-16)
PROC: 06HM33Z Insertion of Infusion Device into Right Femoral Vein, Percutaneous Approach (ICD-10-PCS; 2016-09-16)
PROC: 04HY32Z Insertion of Monitoring Device into Lower Artery, Percutaneous Approach (ICD-10-PCS; 2016-09-18)
PROC: 0BC68ZZ Extirpation of Matter from Right Lower Lobe Bronchus, Via Natural or Artificial Opening Endoscopic (ICD-10-PCS; 2016-09-19)
PROC: 0BC68ZZ Extirpation of Matter from Right Lower Lobe Bronchus, Via Natural or Artificial Opening Endoscopic (ICD-10-PCS; 2016-09-19)
PROC: 0BC58ZZ Extirpation of Matter from Right Middle Lobe Bronchus, Via Natural or Artificial Opening Endoscopic (ICD-10-PCS; 2016-09-19)
PROC: 0BC58ZZ Extirpation of Matter from Right Middle Lobe Bronchus, Via Natural or Artificial Opening Endoscopic (ICD-10-PCS; 2016-09-19)
PROC: 0BCB8ZZ Extirpation of Matter from Left Lower Lobe Bronchus, Via Natural or Artificial Opening Endoscopic (ICD-10-PCS; 2016-09-20)
PROC: 0BC48ZZ Extirpation of Matter from Right Upper Lobe Bronchus, Via Natural or Artificial Opening Endoscopic (ICD-10-PCS; 2016-09-20)
PROC: 0BC68ZZ Extirpation of Matter from Right Lower Lobe Bronchus, Via Natural or Artificial Opening Endoscopic (ICD-10-PCS; 2016-09-20)
DX: A41.9 Sepsis, unspecified organism (principal); G93.6 Cerebral edema; I50.21 Acute systolic (congestive) heart failure; J96.00 Acute respiratory failure, unspecified whether with hypoxia or hypercapnia; E87.0 Hyperosmolality and hypernatremia; G93.1 Anoxic brain damage, not elsewhere classified; I42.0 Dilated cardiomyopathy; N17.9 Acute kidney failure, unspecified; E87.4 Mixed disorder of acid-base balance; J98.11 Atelectasis; N12 Tubulo-interstitial nephritis, not specified as acute or chronic; T68.XXXA Hypothermia, initial encounter; I46.9 Cardiac arrest, cause unspecified; F12.90 Cannabis use, unspecified, uncomplicated; F17.210 Nicotine dependence, cigarettes, uncomplicated; R31.9 Hematuria, unspecified; E87.5 Hyperkalemia; X58.XXXA Exposure to other specified factors, initial encounter; Y93.89 Activity, other specified; Y92.89 Other specified places as the place of occurrence of the external cause; Y99.8 Other external cause status
CPT/HCPCS: 36556; 51702; 70450; 71250; 76700; 78606; 82248; 82575; 82805; 82948; 82962; 82977; 83605; 83615; 83735; 83930; 84100; 87015; 87040; 87070; 87081; 87086; 87101; 87205; 87220; 88307; 88313; 88331; 92950; 93005; 93306; 94002; 94003; 94640; 96365; 96366; 96368; 99291; 99292; A9521; G0480; G0481; J0171; J0456; J1100; J1250; J1265; J1644; J1815; J1940; J2250; J2310; J2370; J2543; J2930; J3370; J3475; J3480; J3490; J7030; J7040; J7042; J7050; J7060; P9041; P9046